=== PATIENT | female | born 1950 | race Caucasian/White ===

== ENCOUNTER → 2023-05-13 12:33 | Outpatient (REF) | payer MEDICARE, SELFPAY | LOC: WDC 12:33 | PROVIDERS: ATTENDING PHYSICIAN Internal Medicine | DX: Z12.31 Encounter for screening mammogram for malignant neoplasm of breast (principal) | CPT/HCPCS: 77063; 77067 ==

== ENCOUNTER 2023-12-21 14:33 | Emergency (ER) | payer MEDICARE, SELFPAY ==
[2023-12-21 14:34] VITALS: BP 129/66
[2023-12-21 14:56] VITALS: BMI 27.1
[2023-12-21 14:57] VITALS: BP 100/60
--- NOTE | 2023-12-21 14:57 | ED.GENMED ---
History of Present Illness
General
Chief Complaint: Abdominal Symptoms
Source: patient, records and spouse
Exam Limitations: none
Time Seen by Provider: 12/21/23 14:47
Nursing documentation reviewed up to this point in time: agreed with
History of Present Illness
History of Present Illness:
Patient is a 73-year-old female who presents to the emergency department complaining of nausea, vomiting and constipation and left lower quadrant abdominal pain. Patient was not feeling well last night and then this morning woke up was tired and
shivering when she developed the above symptoms. Patient has a headache in addition. Patient took aspirin around 1030 today. Patient denies any chest pain or shortness of breath. Patient denies any symptoms. Patient denies any back pain.
Patient denies fever but does admit to chills. Patient has a chronic decrease in appetite.
Past History
Past History
ED Past Medical History: CAD (stent two years ago), HTN, Hypercholesterolemia, Psychiatric (depression) and Other (PUD, glaucoma)
Social History
Tobacco: Non-smoker
Review of Systems
Review of Systems
All Other Systems: ROS reviewed and negative except as documented in HPI and ROS
Constitutional: Reports fatigue and chills; Denies fever
EENT: Reports no symptoms
Respiratory: Reports no symptoms
Cardiac: Reports no symptoms
ABD/GI: Reports abdominal pain, nausea, vomiting, constipated and anorexia; Denies bloody stools or black stools
: Reports no symptoms
Musculoskeletal: Reports no symptoms
Skin: Reports no symptoms
Neurological: Reports no symptoms
Hematologic/Lymphatic: Reports no symptoms
Psychiatric: Reports no symptoms
Phy Exam
Physical Exam
Physical Exam:
Physical Exam
General: mild distress, alert and appropriate, well nourished, mildly dry
HENT: Normocephalic, supple with no lymphadenopathy, no thyromegaly
Eyes: Clear sclera, conjuctiva without injection
Heart: Regular rhythm and rate. No S3, S4. No murmur. No NVD
Lungs: No respiratory distress, no stridor, lung sounds clear and equal bilaterally
Abdomen: Soft, mild to moderate left lower quadrant tenderness but no guarding or rebound, no organomegaly, no CVA tenderness, BS good
Neuro: Alert and oriented x 3, CN II - XII intact, no motor focality, no cerebellar dysfunction
Skin: no rash
Psychiatric: well kept. interactive and cooperative
Extremities: No edema, cyanosis, tenderness
Course
Orders/Labs/Results
Orders:
Orders
12/21/23 14:55
0.9% Sodium Chloride 1000 ml [Nss] 1,000 ml IV BOLUS
Acetaminophen [Tylenol] 1,000 mg PO NOW STA
Ondansetron Injectable [Zofran] 4 mg IV NOW STA
12/21/23 14:56
CT Abd/Pel (IV only)-DH only Urgent
Comment:
Reason For Exam: LLQ tender
12/21/23 15:06
Complete Blood Count/With Diff Urgent
Comprehensive Metabolic Panel Urgent
Lipase Urgent
Urinalysis Reflex To Culture Urgent
Date Specimen was Collected: 12/21/23
Time Specimen was Collected: 15:02
Urine Microscopic Reflex Cult Urgent
Urine Culture Urgent
FRANDY Source: U
Specimen Description:
Date Specimen was Collected: 12/21/23
Time Specimen was Collected: 15:02
Abnormal Lab Results
12/21/23
15:06
RBC 3.96 L 10^6/uL
(4.20-5.40)
Hgb 11.4 L g/dL
(12.0-16.0)
Hct 34.4 L %
(37.0-47.0)
Abs Immat Gran (auto) 0.2 H 10^3/uL
(0-0.05)
Absolute Neuts (auto) 7.1 H 10^3/uL
(1.4-6.5)
Absolute Lymphs (auto) 0.6 L 10^3/uL
(1.2-3.4)
Immature Gran % 1.8 H %
(0-0.5)
Neutrophils % 85.8 H %
(42.2-75.2)
Lymphocytes % 6.8 L %
(20.5-51.1)
BUN 21 H mg/dl
(7-17)
Creatinine 1.2 H mg/dL
(0.6-1.0)
Urine Ketones Trace A
(Negative)
Leukocyte Esterase Rfl Trace A
(Negative)
Urine WBC (Reflex) 11-15 A /HPF
(0-5)
Urine Bacteria (Reflex) Few A
(Negative)
12/21/23 15:06
12/21/23 15:06
Vital Signs
Initial and Last Documented VS:
Initial Vital Signs
Temp Pulse Resp BP Pulse Ox
99.1 F 90 18 129/66 98
12/21/23 14:34 12/21/23 14:34 12/21/23 14:34 12/21/23 14:34 12/21/23 14:34
Last Documented Vital Signs
Temp Pulse Resp BP Pulse Ox
99.1 F 83 18 94/54 93
12/21/23 14:34 12/21/23 17:15 12/21/23 17:15 12/21/23 17:00 12/21/23 17:15
*Radiology
Radiology exam reviewed: radiology read reviewed (Mild diverticulitis)
*Pulse Oximetry
Patient hypoxic: no
*EKG
Interpreted by ED Provider?: NA
*Ornamental [employer]ctor Interpretation
Rate: Ornamental [employer]ctor- N/A
*Critical Care Note
Total Time (30-74mins, 75-104mins- exclusive of procedures): Not Applicable
Update Note
Update Note:
Discussed the findings with the patient. Will place the patient on antibiotics. Patient understands increasing pain or fever to return immediately.
ED Attending Note
-
Portions of this chart may have been created with voice recognition software.� Occasional wrong word or��sound alike� substitutions may have occurred due to the inherent limitations of voice recognition software.
Discharge Plan
Departure
Patient Disposition: Home (Routine Discharge)
Date of Disposition: 12/21/23
Time of Disposition: 17:28
Patient with high blood pressure during this ER visit?: No
Condition: Fair
Covid-19: Not Applicable
Discharge Problem:
Sigmoid diverticulitis
Instructions: Low Fiber Diet, Diverticulitis (DC)
Prescriptions:
New
ondansetron 8 mg tablet,disintegrating
8 mg PO TID PRN (Reason: nausea and vomiting) Qty: 15 0RF
amoxicillin-pot clavulanate 875-125 mg tablet
1 tab PO BID Qty: 20 0RF
oxycodone 5 mg tablet
5 mg PO Q4H PRN (Reason: Pain) Qty: 10 0RF
No Action
quinapril [Accupril] 20 MG tablet
40 mg PO DAILY
atorvastatin 80 MG tablet
80 mg PO QPM
venlafaxine [Effexor XR] 150 MG capsule,extended release 24hr
150 mg PO DAILY
aspirin 81 MG tablet,delayed release (DR/EC)
81 mg PO DAILY
timolol maleate 1 DROP drops
1 drp BOTH EYES BID
escitalopram oxalate 20 MG tablet
20 mg PO DAILY
metoprolol tartrate 25 MG tablet
25 mg PO BID
ticagrelor [Brilinta] 90 MG tablet
90 mg PO HS Qty: 30 0RF
Rx Instructions:
TO BE RESUMED ONLY AFTER CLEARED BY YOUR DEOILING MACHINE OPERATOR
pantoprazole 40 MG tablet,delayed release (DR/EC)
40 mg PO BID Qty: 60 1RF
Rx Instructions:
Take one Tablet daily after 30 days
Referrals:
Roberto Ramirez MD [Family Provider] - Follow up in 2-3 days
Activity Restrictions/Additional Instructions:
Continue present medications and therapy. Return if increasing pain or fever. Otherwise follow-up with your family physician in the next few days. You may use acetaminophen 650 mg to 1000 mg every 6 hours for mild to moderate pain.
Interventions
Interventions:
*Risk Screen - Suicide Last Done: 12/21/23 14:34
*General Assessment Last Done: 12/21/23 14:34
*Neglect/Abuse Screening Last Done: 12/21/23 14:34
ED- Fall Risk Assessment Last Done: 12/21/23 14:54
*ED COVID-19 Vaccine History Last Done: 12/21/23 14:34
NK-Fktccn-[id number] Assessment Last Done: 12/21/23 14:54
Discharge Date and Time
Print Language: CHINESE
[2023-12-21 15:09] VITALS: BP 106/59
[2023-12-21] MEDS: NSS 1000 IV (15:14)
[2023-12-21] MEDS: ZOFRAN 4 MG IV (15:15)
[2023-12-21] MEDS: TYLENOL 1000 MG PO (15:15)
[2023-12-21 15:32] LABS: % Basophils 0.5 % (0-2); % Eosinophils 0.1 % (0-6); % Immature Granulocytes 1.8 % (0-0.5); % Lymphocytes 6.8 % (20.5-51.1); % Neutrophils 85.8 % (42.2-75.2); Absolute Immature Granulocytes 0.2 10^3/uL (0-0.05); Absolute Lymphocytes 0.6 10^3/uL (1.2-3.4); Absolute Monocytes 0.4 10^3/uL (0.1-0.6); Absolute Neutrophils 7.1 10^3/uL (1.4-6.5); Hematocrit 34.4 % (37.0-47.0); Hemoglobin 11.4 g/dL (12.0-16.0); Mean Corp Hgb Conc. 33.1 g/dL (33.0-37.0); Mean Corpuscular Hgb 28.8 pg (27.0-31.0); Mean Corpuscular Volume 86.9 fL (81.0-99.0); Mean Platelet Volume 9.3 fL (7.4-10.4); Nucleated Red Blood Cells % 0 %; Platelet Count 239 10^3/uL (130-400); Red Blood Cell Count 3.96 10^6/uL (4.20-5.40); Red Cell Dist. Width 13.3 % (11.5-14.5); White Blood Cell Count 8.3 10^3/uL (4.8-10.8)
[2023-12-21 15:51] LABS: ALT (SGPT) 25 U/L (0-35); AST (SGOT) 24 U/L (14-36); Albumin 4.1 g/dl (3.5-5.0); Alkaline Phosphatase 86 U/L (38-126); Blood Urea Nitrogen 21 mg/dl (7-17); Calcium 9.4 mg/dl (8.4-10.2); Carbon Dioxide 25 mmol/L (22-30); Chloride 100 mmol/L (98-107); Estimated Creatinine Clearance 39 ml/min; Glucose 94 mg/dl (70-99); Lipase 52 U/L (23-300); Potassium 4.4 mmol/L (3.5-5.1); Sodium 135 mmol/L (135-145); Total Bilirubin 0.6 mg/dl (0.2-1.3); Total Protein 6.7 g/dl (6.3-8.2)
[2023-12-21 16:00] VITALS: BP 98/52
[2023-12-21 16:48] LABS: Urine Albumin Negative (Neg - Trace); Urine Bilirubin Negative (Negative); Urine Character Clear (Clear); Urine Color Yellow; Urine Glucose Negative (Negative); Urine Ketone Trace (Negative); Urine Leukocyte Trace (Negative); Urine Nitrite Negative (Negative); Urine Occult Blood Negative (Negative); Urine Specific Gravity 1.015 (<1.030); Urine Urobilinogen Negative (Neg - 1+)
[2023-12-21 17:00] VITALS: BP 94/54
[2023-12-21 17:02] LABS: Urine Hyaline Cast 0-2 /LPF (0-2)
[2023-12-21 17:03] LABS: Urine Bacteria Few (Negative)
== END 2023-12-21 17:57 | disposition home or self-care (01) ==
LOC: EMR 14:33
PROVIDERS: EMERGENCY PHYSICIAN Emergency Medicine; FAMILY PHYSICIAN Internal Medicine
DX: K57.32 Diverticulitis of large intestine without perforation or abscess without bleeding (principal); R11.2 Nausea with vomiting, unspecified; I25.10 Atherosclerotic heart disease of native coronary artery without angina pectoris; I10 Essential (primary) hypertension; E78.00 Pure hypercholesterolemia, unspecified
CPT/HCPCS: 96374; 96361; 99284; 74177; 80053; 81003; 81015; 83690; 85025; 87086; Q9967

== ENCOUNTER → 2024-07-31 15:07 | Outpatient (REF) | payer MEDICARE, SELFPAY | LOC: DHSLP 15:07 | PROVIDERS: ATTENDING PHYSICIAN Internal Medicine Cardiovascular Disease; FAMILY PHYSICIAN Internal Medicine | DX: G47.33 Obstructive sleep apnea (adult) (pediatric) (principal); R09.02 Hypoxemia | CPT/HCPCS: 95800 ==